=== PATIENT | male | born 1970 | race Caucasian/White ===

== ENCOUNTER 2023-02-14 03:51 | Emergency (ER) | payer OTHER ==
--- NOTE | 2023-02-14 05:10 | ED ---
Chest Pain HPI - General Stated Complaint: Chest Pain Time Seen by Provider: 02/14/23 04:32 - History of Present Illness Initial Comments: This patient is 52-year-old man who had developed chest pain earlier in the evening. The patient stated that the pain did resolve. MD Complaint: chest pain -: hour(s) Onset: during rest Pain Location: substernal Pain Radiation: none Quality: dull Consistency: intermittent, now resolved Improves With: nothing Treatments Prior to Arrival: aspirin, nitroglycerin - Related Data Allergies Allergy/AdvReac Type Severity Reaction Status Date / Time No Known Allergies Allergy Verified 02/14/23 05:58 Review of Systems ROS Statement: Those systems with pertinent positive or pertinent negative responses have been documented in the HPI. ROS Other: All systems not noted in ROS Statement are negative. Constitutional: Denies: fever, chills Respiratory: Denies: cough, dyspnea Cardiovascular: Reports: chest pain. Denies: palpitations, edema Gastrointestinal: Denies: abdominal pain, nausea, vomiting Genitourinary: Denies: dysuria Musculoskeletal: Denies: back pain Skin: Denies: rash Neurological: Denies: headache, weakness, numbness EKG Findings - EKG Results: EKG: interpreted by ERMD, sinus rhythm (Rate 63 bpm), normal axis, normal QRS, normal ST/T General Exam General appearance: alert, in no apparent distress Head exam: Present: atraumatic, normocephalic Eye exam: Present: normal appearance. Absent: scleral icterus, conjunctival injection ENT exam: Present: normal oropharynx Neck exam: Present: normal inspection Respiratory exam: Present: normal lung sounds bilaterally. Absent: respiratory distress, wheezes, rales, rhonchi, stridor Cardiovascular Exam: Present: regular rate, normal rhythm, normal heart sounds. Absent: systolic murmur, diastolic murmur, rubs, gallop GI/Abdominal exam: Present: soft. Absent: distended, tenderness, guarding, rebound, rigid, mass Extremities exam: Present: normal inspection, normal capillary refill. Absent: pedal edema, calf tenderness Back exam: Present: normal inspection. Absent: CVA tenderness (R) Neurological exam: Present: alert Skin exam: Present: warm, dry, intact, normal color. Absent: rash Course Vital Signs 02/14/23 02/14/23 02/14/23 04:08 05:00 06:00 Temperature Pulse Rate 63 72 74 Respiratory 16 18 18 Rate Blood Pressure 114/68 111/69 110/72 O2 Sat by Pulse 95 Oximetry 02/14/23 07:06 Temperature 98.8 F Pulse Rate 60 Respiratory 18 Rate Blood Pressure 125/80 O2 Sat by Pulse 97 Oximetry Chest Pain MDM - MDM The patient had chest x-ray which I interpreted as negative for acute infiltrate, pneumothorax, congestive heart failure Was pt. sent in by a medical professional or institution (, [facility], WASHROOM CLEANER, urgent care, hospital, or usp...) When possible be specific @ -[No] Did you speak to anyone other than the patient for history (EMS, parent, family, police, friend...)? What history was obtained from this source @ -[No] Did you review nursing and triage notes (agree or disagree)? Why? @ -[I reviewed and agree with nursing and triage notes] Were old charts reviewed (outside hosp., previous admission, EMS record, old EKG, old radiological studies, urgent care reports/EKG's, usp records)? Report findings @ -[No old charts were reviewed] Differential Diagnosis (chest pain, altered mental status, abdominal pain women, abdominal pain men, vaginal bleeding, weakness, fever, dyspnea, syncope, headache, dizziness, GI bleed, back pain, seizure, CVA, palpatations, mental health, musculoskeletal)? @ -[Differential Chest Pain: Stable Angina, Unstable Angina, STEMI, NSTEMI Aortic Dissection, Pneumothorax, Musculoskeletal, Esophageal Spasm GERD, Cholecystitis, Pancreatitis, Zoster, this is not meant to be an all-inclusive list. EKG interpreted by me (3pts min.). @ -[I interpreted As above] X-rays interpreted by me (1pt min.). @ -[I interpreted as above CT interpreted by me (1pt min.). @ -[None done] U/S interpreted by me (1pt. min.). @ -[None done] What testing was considered but not performed or refused? (CT, X-rays, U/S, labs)? Why? @ -[None] What meds were considered but not given or refused? Why? @ -[None] Did you discuss the management of the patient with other professionals (professionals i.e. , PA, WASHROOM CLEANER, lab, RT, psych nurse, social professionals, literacy specialist, teacher, plain clothes police officer, case reviewer)? Give summary @ -[No] Was smoking cessation discussed for >3mins.? @ -[No] Was critical care preformed (if so, how long)? @ -[No] Were there social determinants of health that impacted care today? How? (Homelessness, low income, unemployed, alcoholism, drug addiction, transportation, low edu. Level, literacy, decrease access to med. care, penitentiary, rehab)? @ -[No] Was there de-escalation of care discussed even if they declined (Discuss DNR or withdrawal of care, Hospice)? DNR status @ -[No] What co-morbidities impacted this encounter? (DM, HTN, Smoking, COPD, CAD, Cancer, CVA, ARF, Chemo, Hep., AIDS, mental health diagnosis, sleep apnea, morbid obesity)? @ -[None] Was patient admitted / discharged? Hospital course, mention meds given and route, prescriptions, significant lab abnormalities, going to OR and other pertinent info. @ -[The patient is 52-year-old man who did have episode of chest pain, but pain-free in the department. His workup is negative. He did request discharge back to [place]. We discussed appropriate further care and follow-up as well as return parameters Undiagnosed new problem with uncertain prognosis? @ -[No] Drug Therapy requiring intensive monitoring for toxicity (Heparin, Nitro, Insulin, Cardizem)? @ -[No] Were any procedures done? @ -[No] Diagnosis/symptom? @ -[Acute chest pain, resolved Acute, or Chronic, or Acute on Chronic? @ -[Acute Uncomplicated (without systemic symptoms) or Complicated (systemic symptoms)? @ -[Uncomplicated Side effects of treatment? @ -[No] Exacerbation, Progression, or Severe Exacerbation? @ -[No] Poses a threat to life or bodily function? How? (Chest pain, [place], [place], pneumonia, PE, COPD, DKA, ARF, appy, cholecystitis, CVA, Diverticulitis, Homicidal, Suicidal, threat to staff... and all critical care pts) @ -[No] Disposition Clinical Impression: Chest pain Disposition: HOME SELF-CARE Condition: Good Instructions (If sedation given, give patient instructions): Chest Pain (ED) Is patient prescribed a controlled substance at d/c from ED?: No Referrals: None,Stated [Primary Care Provider] - 1-2 days
[2023-02-14] MEDS ORDERED: MORPHINE SULFATE 4 MG/ML SYRINGE IV STA (05:37)
[2023-02-14] MEDS ORDERED: NICOTINE GUM (POLACRILEX) 2 MG GUM BUCCAL STA (05:39)
[2023-02-14 06:05] VITALS: RESP 18
--- NOTE | 2023-02-14 06:35 | XR ---
EXAMINATION TYPE: XR chest 2V DATE OF EXAM: 02/14/2023 COMPARISON: NONE HISTORY: Chest pain TECHNIQUE: Frontal and lateral views of the chest are obtained. FINDINGS: There is a 2-lead cardiac pacemaker. The heart size normal. The pulmonary vasculature appears slightly congested. There is no pleural effu oma or pneumothorax. There is no consolidative/airspace opacity. The osseous structures are intact IMPRESSION: 1. Cardiac pacemaker. 2. Slight vascular congestion without overt CHF
[2023-02-14 07:05] LABS: Basophils % (A) 0 %; Eosinophils # (A) 0.2 k/uL (0-0.7); Eosinophils % (A) 2 %; HCT 38.6 % (39.0-53.0); HGB 12.6 gm/dL (13.0-17.5); Lymphocytes # (A) 3.4 k/uL (1.0-4.8); Lymphocytes % (A) 44 %; MCHC 32.6 g/dL (31.0-37.0); MCV 92.1 fL (80.0-100.0); Mean Platelet Volume 7.7; Monocytes # (A) 0.4 k/uL (0-1.0); Monocytes % (A) 6 %; Neutrophils # (A) 3.5 k/uL (1.3-7.7); Neutrophils % (A) 46 %; Platelet Count 141 k/uL (150-450); RBC 4.19 m/uL (4.30-5.90); RDW 14.4 % (11.5-15.5); WBC 7.6 k/uL (3.8-10.6)
[2023-02-14 07:10] VITALS: BP 125/80; PULSE 60; TEMP 98.8
[2023-02-14 07:16] LABS: INR 0.9 (<1.2); Prothrombin Time 10.1 sec (9.0-12.0)
[2023-02-14 07:22] LABS: ALT 26 U/L (4-49); AST 20 U/L (17-59); African American GFR (CKD) >90 (>60 ml/min/1.73 sqM); Alkaline Phosphatase 44 U/L (38-126); Anion Gap 3 mmol/L; Blood Urea Nitrogen 13 mg/dL (9-20); Calcium 8.7 mg/dL (8.4-10.2); Carbon Dioxide 27 mmol/L (22-30); Chloride 109 mmol/L (98-107); Glucose 101 mg/dL (74-99); Magnesium 2.2 mg/dL (1.6-2.3); Non-African American GFR(CKD) >90 (>60 ml/min/1.73 sqM); Sodium 139 mmol/L (137-145); Total Bilirubin 0.1 mg/dL (0.2-1.3); Total Protein 5.1 g/dL (6.3-8.2)
== END 2023-02-14 08:00 | disposition home or self-care (01) ==
LOC: EC 03:51
DX: R07.2 Precordial pain (principal)
CPT/HCPCS: 36415; 93005; 80053; 83735; 84484; 85025; 85610; 85730; 71046; 99285; 96374; J2270

== ENCOUNTER 2023-03-29 13:45 | Emergency (ER) | payer OTHER ==
[2023-03-29 14:09] VITALS: RESP 18
--- NOTE | 2023-03-29 14:38 | ED ---
General Adult HPI - General Chief complaint: Skin/Abscess/Foreign Body Stated complaint: cyst on tail bone Time Seen by Provider: 03/29/23 14:15 Source: patient, RN notes reviewed Mode of arrival: ambulatory Limitations: no limitations - History of Present Illness Initial comments: 52-year-old male presents emergency Department chief complaint of abscess on his tailbone. Patient states that this is been a recurrent issue. He states about 3-4 weeks ago he was admitted at [facility] secondary to bacteremia. Patient states she is on multiple antibiotics. No surgical intervention. Patient states he was told to follow-up for treatment of that. Patient denies fever currently denies night sweats he states there is drainage from the site. Josiah ramirez is currently at [place] - Related Data Previous Rx's Medication Instructions Recorded Cephalexin [Keflex] 500 mg PO Q6HR #40 cap 03/29/23 Sulfamethox-Tmp 800-160Mg [Bactrim 1 each PO Q12HR #20 tab 03/29/23 Ds] Allergies Allergy/AdvReac Type Severity Reaction Status Date / Time Iodinated Contrast Media AdvReac Nausea & Verified 03/29/23 14:01 Vomiting Review of Systems ROS Statement: Those systems with pertinent positive or pertinent negative responses have been documented in the HPI. ROS Other: All systems not noted in ROS Statement are negative. Past Medical History Past Medical History: No Reported History History of Any Multi-Drug Resistant Organisms: None Reported Past Surgical History: No Surgical Hx Reported Past Psychological History: No Psychological Hx Reported Smoking Status: Current every day smoker Past Alcohol Use History: None Reported Past Drug Use History: IV Drug Use General Exam Limitations: no limitations General appearance: alert, in no apparent distress Head exam: Present: atraumatic, normocephalic, normal inspection Eye exam: Present: normal appearance, PERRL, EOMI. Absent: scleral icterus, conjunctival injection, periorbital swelling Respiratory exam: Present: normal lung sounds bilaterally. Absent: respiratory distress, wheezes, rales, rhonchi, stridor Cardiovascular Exam: Present: regular rate, normal rhythm, normal heart sounds. Absent: systolic murmur, diastolic murmur, rubs, gallop, clicks Skin exam: Present: other (At the cleft of the buttocks there is an open 1 cm abscess) Course Vital Signs 03/29/23 13:58 Temperature 98.5 F Pulse Rate 89 Respiratory 18 Rate Blood Pressure 124/77 O2 Sat by Pulse 98 Oximetry Medical Decision Making - Medical Decision Making Was pt. sent in by a medical professional or institution ([facility] Mello, REGISTER CLERK, urgent care, hospital, or custodial...) When possible be specific @ -[place] Did you speak to anyone other than the patient for history (EMS, parent, family, police, friend...)? What history was obtained from this source @ -No Did you review nursing and triage notes (agree or disagree)? Why? @ -I reviewed and agree with nursing and triage notes Were old charts reviewed (outside hosp., previous admission, EMS record, old EKG, old radiological studies, urgent care reports/EKG's, custodial records)? Report findings @ -No old charts were reviewed Differential Diagnosis (chest pain, altered mental status, abdominal pain women, abdominal pain men, vaginal bleeding, weakness, fever, dyspnea, syncope, headache, dizziness, GI bleed, back pain, seizure, CVA, palpatations, mental health, musculoskeletal)? @ -pilonodal cysts, abscess EKG interpreted by me (3pts min.). @ -None X-rays interpreted by me (1pt min.). @ -None done CT interpreted by me (1pt min.). @ -None done U/S interpreted by me (1pt. min.). @ -None done What testing was considered but not performed or refused? (CT, X-rays, U/S, labs)? Why? @ -None What meds were considered but not given or refused? Why? @ -None Did you discuss the management of the patient with other professionals (professionals i.e. AFIA Mello, REGISTER CLERK, lab, RT, psych nurse, social media campaign manager, tree scout, teacher, artillery officer, correctional case records supervisor)? Give summary @ -No Was smoking cessation discussed for >3mins.? @ -No Was critical care preformed (if so, how long)? @ -No Were there social determinants of health that impacted care today? How? (Homelessness, low income, unemployed, alcoholism, drug addiction, transportation, low edu. Level, literacy, decrease access to med. care, half-way, rehab)? @ -No Was there de-escalation of care discussed even if they declined (Discuss DNR or withdrawal of care, Hospice)? DNR status @ -No What co-morbidities impacted this encounter? (DM, HTN, Smoking, COPD, CAD, Cancer, CVA, ARF, Chemo, Hep., AIDS, mental health diagnosis, sleep apnea, morbid obesity)? @ -None Was patient admitted / discharged? Hospital course, mention meds given and route, prescriptions, significant lab abnormalities, going to OR and other pertinent info. @ -Patient left AGAINST MEDICAL ADVICE stating that he wanted to leave patient does have a draining cyst abscess that may require further intervention was give n antibiotics even though patient was leaving AGAINST MEDICAL ADVICE Undiagnosed new problem with uncertain prognosis? @ -No Drug Therapy requiring intensive monitoring for toxicity (Heparin, Nitro, Insulin, Cardizem)? @ -No Were any procedures done? @ -No Diagnosis/symptom? @ -Pilonodal abscess Acute, or Chronic, or Acute on Chronic? @ -[acute Uncomplicated (without systemic symptoms) or Complicated (systemic symptoms)? @ -uncomplicated Side effects of treatment? @ -No Exacerbation, Progression, or Severe Exacerbation? @ -No Poses a threat to life or bodily function? How? (Chest pain, [place], [place], pneumonia, PE, COPD, DKA, ARF, appy, cholecystitis, CVA, Diverticulitis, Homicidal, Suicidal, threat to staff... and all critical care pts) @ -No - Lab Data Result diagrams: 03/29/23 15:17 03/29/23 15:17 Lab Results 03/29/23 03/29/23 03/29/23 Range/Units 15:17 15:17 15:17 WBC 4.9 (3.8-10.6) k/uL RBC 4.34 (4.30-5.90) m/uL Hgb 13.2 (13.0-17.5) gm/dL Hct 38.7 L (39.0-53.0) % MCV 89.1 (80.0-100.0) fL MCH 30.4 (25.0-35.0) pg MCHC 34.1 (31.0-37.0) g/dL RDW 14.4 (11.5-15.5) % Plt Count 209 (150-450) k/uL MPV 7.5 Neutrophils % 44 % Lymphocytes % 41 % Monocytes % 7 % Eosinophils % 3 % Basophils % 1 % Neutrophils # 2.2 (1.3-7.7) k/uL Lymphocytes # 2.0 (1.0-4.8) k/uL Monocytes # 0.4 (0-1.0) k/uL Eosinophils # 0.2 (0-0.7) k/uL Basophils # 0.0 (0-0.2) k/uL Sodium 138 (137-145) mmol/L Potassium 4.4 (3.5-5.1) mmol/L Chloride 106 (98-107) mmol/L Carbon Dioxide 21 L (22-30) mmol/L Anion Gap 11 mmol/L BUN 14 (9-20) mg/dL Creatinine 0.72 (0.66-1.25) mg/dL Est GFR (CKD-EPI)AfAm >90 (>60 ml/min/1.73 sqM) Est GFR (CKD-EPI)NonAf >90 (>60 ml/min/1.73 sqM) Glucose 97 (74-99) mg/dL Plasma Lactic Acid Pal 1.0 (0.7-2.0) mmol/L Calcium 9.6 (8.4-10.2) mg/dL Disposition Clinical Impression: Pilonidal abscess of sadaf cleft Disposition: LEFT AGAINST MEDICAL ADVICE Instructions (If sedation given, give patient instructions): Abscess (ED) Prescriptions: Sulfamethox-Tmp 800-160Mg [Bactrim Ds] 1 each PO Q12HR #20 tab Cephalexin [Keflex] 500 mg PO Q6HR #40 cap Is patient prescribed a controlled substance at d/c from ED?: No Referrals: Nonstaff,Physician [Primary Care Provider] - 1-2 days Time of Disposition: 16:05
[2023-03-29 15:38] LABS: Basophils % (A) 1 %; Eosinophils # (A) 0.2 k/uL (0-0.7); Eosinophils % (A) 3 %; HCT 38.7 % (39.0-53.0); HGB 13.2 gm/dL (13.0-17.5); Lymphocytes % (A) 41 %; MCH 30.4 pg (25.0-35.0); MCHC 34.1 g/dL (31.0-37.0); MCV 89.1 fL (80.0-100.0); Mean Platelet Volume 7.5; Monocytes # (A) 0.4 k/uL (0-1.0); Monocytes % (A) 7 %; Neutrophils # (A) 2.2 k/uL (1.3-7.7); Neutrophils % (A) 44 %; Platelet Count 209 k/uL (150-450); RBC 4.34 m/uL (4.30-5.90); RDW 14.4 % (11.5-15.5); WBC 4.9 k/uL (3.8-10.6)
[2023-03-29 15:45] LABS: African American GFR (CKD) >90 (>60 ml/min/1.73 sqM); Anion Gap 11 mmol/L; Blood Urea Nitrogen 14 mg/dL (9-20); Calcium 9.6 mg/dL (8.4-10.2); Carbon Dioxide 21 mmol/L (22-30); Chloride 106 mmol/L (98-107); Glucose 97 mg/dL (74-99); Non-African American GFR(CKD) >90 (>60 ml/min/1.73 sqM); Potassium 4.4 mmol/L (3.5-5.1); Sodium 138 mmol/L (137-145)
[2023-03-29] MEDS ORDERED: KETOROLAC 15 MG/ML 1 ML VIAL IM STA (16:24)
[2023-03-29 16:46] VITALS: BP 111/71; PULSE 71; TEMP 98.2
== END 2023-03-29 16:48 | disposition left against medical advice (07) ==
LOC: EC 13:45
DX: L05.01 Pilonidal cyst with abscess (principal); Z53.29 Procedure and treatment not carried out because of patient's decision for other reasons; F17.200 Nicotine dependence, unspecified, uncomplicated; F15.90 Other stimulant use, unspecified, uncomplicated; Z91.041 Radiographic dye allergy status
CPT/HCPCS: 36415; 80048; 83605; 85025; 87040; 99283

== ENCOUNTER 2023-06-10 03:27 | Inpatient (IN) | payer OTHER ==
[2023-06-10] MEDS ORDERED: MORPHINE SULFATE 4 MG/ML SYRINGE IV STA (03:37)
[2023-06-10 03:56] LABS: ALT 24 U/L (4-49); AST 24 U/L (17-59); African American GFR (CKD) >90 (>60 ml/min/1.73 sqM); Albumin 3.9 g/dL (3.5-5.0); Alkaline Phosphatase 66 U/L (38-126); Anion Gap 6 mmol/L; Blood Urea Nitrogen 12 mg/dL (9-20); Calcium 9.4 mg/dL (8.4-10.2); Carbon Dioxide 23 mmol/L (22-30); Chloride 110 mmol/L (98-107); Glucose 141 mg/dL (74-99); Lipase 99 U/L (23-300); Magnesium 2.2 mg/dL (1.6-2.3); Non-African American GFR(CKD) >90 (>60 ml/min/1.73 sqM); Potassium 4.1 mmol/L (3.5-5.1); Sodium 139 mmol/L (137-145); Total Bilirubin 0.4 mg/dL (0.2-1.3); Total Protein 6.5 g/dL (6.3-8.2)
[2023-06-10 03:58] LABS: Basophils % (A) 1 %; Eosinophils # (A) 0.2 k/uL (0-0.7); Eosinophils % (A) 3 %; HCT 36.3 % (39.0-53.0); HGB 11.8 gm/dL (13.0-17.5); Lymphocytes # (A) 2.2 k/uL (1.0-4.8); Lymphocytes % (A) 28 %; MCH 28.9 pg (25.0-35.0); MCHC 32.5 g/dL (31.0-37.0); MCV 88.9 fL (80.0-100.0); Monocytes # (A) 0.7 k/uL (0-1.0); Monocytes % (A) 8 %; Neutrophils # (A) 4.5 k/uL (1.3-7.7); Neutrophils % (A) 57 %; Platelet Count 225 k/uL (150-450); RBC 4.09 m/uL (4.30-5.90); RDW 14.5 % (11.5-15.5); WBC 7.8 k/uL (3.8-10.6)
[2023-06-10 04:04] LABS: NT-Pro-B-Type Natriuretic Pept <20 pg/mL
--- NOTE | 2023-06-10 04:15 | ED ---
Chest Pain HPI - General Chief Complaint: Chest Pain Stated Complaint: Chest pain Time Seen by Provider: 06/10/23 03:30 Source: patient, EMS Mode of arrival: EMS Limitations: no limitations - History of Present Illness Initial Comments: 52-year-old male presents the emergency department from [place]. Comes in complaining of chest pain. States he has a history of previous HI without stent placement. States that the pain started around 130. Located in the central portion of his chest and radiates straight through to his back. No associated shortness of breath. EMS did provide the patient with 4 chewable aspirins and a nitro which she states did not help his pain. He does have a history of alcohol, opiate and cocaine abuse. No other alleviating, precipitating modifying factors - Related Data Home Medications Medication Instructions Recorded Confirmed Acetaminophen [Tylenol] 650 mg PO Q4H PRN 06/10/23 06/10/23 Brexpiprazole [Rexulti] 3 mg PO DAILY 06/10/23 06/10/23 Buprenorphine HCl/Naloxone HCl 1 film SL HS 06/10/23 06/10/23 [Suboxone 8 mg-2 mg Sl Film] Buprenorphine HCl/Naloxone HCl 2 film SL DAILY 06/10/23 06/10/23 [Suboxone 8 mg-2 mg Sl Film] Fluticasone Nasal [place] [Flonase 1 spray EA NOSTRIL DAILY 06/10/23 06/10/23 Nasal [place]] Gabapentin 300 mg PO TID 06/10/23 06/10/23 Loratadine [Claritin] 10 mg PO DAILY 06/10/23 06/10/23 Omeprazole 20 mg PO DAILY 06/10/23 06/10/23 lisinopriL [Zestril] 10 mg PO DAILY 06/10/23 06/10/23 metFORMIN HCL [Glucophage] 500 mg PO BID 06/10/23 06/10/23 Previous Rx's Medication Instructions Recorded Aspirin 81 mg PO DAILY 30 Days #30 tab 06/11/23 Atorvastatin [Lipitor] 80 mg PO HS 30 Days #30 tab 06/11/23 DULoxetine HCL [Cymbalta] 60 mg PO DAILY 30 Days #30 cap 06/11/23 Metoprolol Succinate (ER) [Toprol 25 mg PO DAILY 30 Days #30 tab 06/11/23 XL] Allergies Allergy/AdvReac Type Severity Reaction Status Date / Time Iodinated Contrast Media AdvReac Nausea & Verified 06/10/23 07:20 Vomiting Review of Systems ROS Statement: Those systems with pertinent positive or pertinent negative responses have been documented in the HPI. ROS Other: All systems not noted in ROS Statement are negative. Past Medical History Past Medical History: No Reported History History of Any Multi-Drug Resistant Organisms: None Reported Past Surgical History: No Surgical Hx Reported Past Psychological History: No Psychological Hx Reported Smoking Status: Current every day smoker Past Alcohol Use History: None Reported Past Drug Use History: IV Drug Use - Past Family History Mother History Unknown: Yes Family Medical History: Cancer Additional Family Medical History / Comment(s): Lung Cancer Father Family Medical History: Cancer Daughter(s) Family Medical History: Renal Disease Additional Family Medical History / Comment(s): "Kidneys drained too quickly" General Exam Limitations: no limitations General appearance: alert, in distress Head exam: Present: atraumatic, normocephalic, normal inspection Eye exam: Present: normal appearance, PERRL, EOMI. Absent: scleral icterus, conjunctival injection, periorbital swelling ENT exam: Present: normal exam, mucous membranes moist Neck exam: Present: normal inspection. Absent: tenderness, meningismus, lymphadenopathy Respiratory exam: Present: normal lung sounds bilaterally. Absent: respiratory distress, wheezes, rales, rhonchi, stridor Cardiovascular Exam: Present: regular rate, normal rhythm, normal heart sounds. Absent: systolic murmur, diastolic murmur, rubs, gallop, clicks GI/Abdominal exam: Present: soft, normal bowel sounds. Absent: distended, tenderness, guarding, rebound, rigid Extremities exam: Present: normal inspection, full ROM, normal capillary refill. Absent: tenderness, pedal edema, joint swelling, calf tenderness Back exam: Present: normal inspection Neurological exam: Present: alert, oriented X3, CN II-XII intact Psychiatric exam: Present: normal affect, normal mood Skin exam: Present: warm, dry, intact, normal color. Absent: rash Course Vital Signs 06/10/23 06/10/23 06/10/23 03:28 04:30 04:44 Temperature 98.3 F Pulse Rate 61 74 70 Respiratory 18 16 18 Rate Blood Pressure 106/77 105/56 122/78 O2 Sat by Pulse 96 98 98 Oximetry 06/10/23 04:51 Temperature Pulse Rate 65 Respiratory 16 Rate Blood Pressure 94/44 O2 Sat by Pulse 97 Oximetry Chest Pain MDM - MDM Was pt. sent in by a medical professional or institution ([facility]IA Mello, BAG MENDER, urgent care, hospital, or usp...) When possible be specific @ -No Did you speak to anyone other than the patient for history (EMS, parent, family, police, friend...)? What history was obtained from this source @ -No Did you review nursing and triage notes (agree or disagree)? Why? @ -I reviewed and agree with nursing and triage notes Were old charts reviewed (outside hosp., previous admission, EMS record, old EKG, old radiological studies, urgent care reports/EKG's, usp records)? Report findings @ -No old charts were reviewed Differential Diagnosis (chest pain, altered mental status, abdominal pain women, abdominal pain men, vaginal bleeding, weakness, fever, dyspnea, syncope, headache, dizziness, GI bleed, back pain, seizure, CVA, palpatations, mental health, musculoskeletal)? @ -Not applicable EKG interpreted by me (3pts min.). @ -First done at 341 demonstrates sinus rhythm with a rate of 69. Parable 186. QRS 104. QTc of 431. Repeat done at 4:11 AM demonstrates sinus rhythm with a rate of 65. MD of 149. QRS 100. QTc 427. Patient does appear to have hyperacute T waves in 2, 3, aVF with no reciprocal changes X-rays interpreted by me (1pt min.). @ -None done CT interpreted by me (1pt min.). @ -None done U/S interpreted by me (1pt. min.). @ -None done What testing was considered but not performed or refused? (CT, X-rays, U/S, labs)? Why? @ -None What meds were considered but not given or refused? Why? @ -None Did you discuss the management of the patient with other professionals (professionals i.e. AFIA Mello, BAG MENDER, lab, RT, psych nurse, forensic social worker, white sugar supervisor, teacher, plant protection officer, rn field case manager)? Give summary @ -No Was smoking cessation discussed for >3mins.? @ -No Was critical care preformed (if so, how long)? @ -[address] discussion [address] Dr[address] garcia, diagnosis of unstable angina and transfer of patient to labor relations director Were there social determinants of health that impacted care today? How? (Homelessness, low income, unemployed, alcoholism, drug addiction, transport ation, low edu. Level, literacy, decrease access to med. care, detention, rehab)? @ -No Was there de-escalation of care discussed even if they declined (Discuss DNR or withdrawal of care, Hospice)? DNR status @ -No What co-morbidities impacted this encounter? (DM, HTN, Smoking, COPD, CAD, Cancer, CVA, ARF, Chemo, Hep., AIDS, mental health diagnosis, sleep apnea, morbid obesity)? @ -None Was patient admitted / discharged? Hospital course, mention meds given and route, prescriptions, significant lab abnormalities, going to OR and other pertinent info. @ -Upon arrival patient was placed into room 1. Thorough history and physical exam was performed. Twelve-lead EKG is obtained. Patient does have some hyperacute T waves. IV is established. laboratory studies are conducted. I did repeat an EKG which continues to demonstrate concerning findings, however more pronounced. Because of this I did speak with Dr. Marcum who is on-call for cardiology. Due to patient's active chest pain he will be taken to Fast Food Assistant Restaurant Manager at this time. He was given a dose of morphine for symptom control and is awaiting transfer to the labor relations director Undiagnosed new problem with uncertain prognosis? @ -yes Drug Therapy requiring intensive monitoring for toxicity (Heparin, Nitro, Insulin, Cardizem)? @ -No Were any procedures done? @ -No Diagnosis/symptom? @ -acute chest pain, unstable angina Acute, or Chronic, or Acute on Chronic? @ -acute Uncomplicated (without systemic symptoms) or Complicated (systemic symptoms)? @ -complicated Side effects of treatment? @ -No Exacerbation, Progression, or Severe Exacerbation? @ -No Poses a threat to life or bodily function? How? (Chest pain, [place], [place], pneumonia, PE, COPD, DKA, ARF, appy, cholecystitis, CVA, Diverticulitis, Homicidal, Suicidal, threat to staff... and all critical care pts) @ -yes patient presents with significant chest pain Disposition Clinical Impression: Chest pain Disposition: ADMITTED IP TO THIS HOSP Condition: Stable Is patient prescribed a controlled substance at d/c from ED?: No Time of Disposition: 04:29 Decision to Admit Reason: Admit from EC Decision Date: 06/10/23 Decision Time: :29
[2023-06-10] MEDS ORDERED: HEPARIN SOD,PORK IN 0.45% NACL 25,000 UNIT in 0.45% NACL 1 250ML.BAG IV SCH (04:30)
[2023-06-10] MEDS ORDERED: HEPARIN SODIUM 1,000 UN/ML (10ML VL) IV PRN (04:30)
[2023-06-10] MEDS ORDERED: HEPARIN SODIUM 1,000 UN/ML (10ML VL) IV ONE (04:30)
[2023-06-10] MEDS ORDERED: NALOXONE 0.4 MG/ML 1 ML VIAL IV PRN (04:31)
--- NOTE | 2023-06-10 04:31 | XR ---
EXAM: XR Chest, 2 Views CLINICAL HISTORY: ITS.REASON XR Reason: Chest Pain TECHNIQUE: Frontal and lateral views of the chest. COMPARISON: 2 views of the chest February 14, 2023 IMPRESSION: 1. Mild dependent atelectatic changes. Otherwise, no acute cardiopulmonary abnormality.
[2023-06-10] MEDS ORDERED: ATORVASTATIN 40 MG TAB PO STA (04:35)
[2023-06-10] MEDS: MORPHINE SULFATE 4 MG/ML SYRINGE IV PRN ×3 (04:40→19:54)
[2023-06-10] MEDS ORDERED: diphenhydrAMINE 50 MG/ML 1 ML VIAL ONE (05:08)
[2023-06-10] MEDS ORDERED: methylPREDNISolone SOD SUCCI 125 MG/2 ML VIAL ONE (05:09)
[2023-06-10] MEDS ORDERED: LIDOCAINE 1% INJ 10MG/ML (20 ML MDV) SQ ONE (05:15)
--- NOTE | 2023-06-10 05:15 | P.HPIM ---
History of Present Illness H&P Date: 06/10/23 Chief Complaint: chest pain 52 year old male with hypertension , alcohol abuse and dependance patient coming in for sudden onset chest pain, he was at [facility] for alcoho l withdrawal , his last drink was 6 days ago. he reports that shakes and anxiety has almost resolved , denies any hallucinations, but does report some crawling sensation over his legs. he was sleeping and woke up with severe left sided chest pain , associated with nausea , diaphoresis , SOB, palpitations and heavy breathing, he reports history of CAD with left heart cath done in the past, and his doctors almost deployed a stent. EMS was notified , and was given full dose aspirin, and brought to the hospital for evaluation he also reports afib, s/p PPM, but is not on any blood thinners due to none compliance he reports history of DM and hypertension , however nothing listed in his med list. he admits to to bacco smoking, and heavy alcohol review of systems Pertinent positives as noted in HPI. All other systems were reviewed and are negative on exam Constitutional: No acute distress, conversant, pleasant Eyes: Anicteric sclerae, moist conjunctiva, Pupils equal round reactive to light ENMT: NC/AT Oropharynx clear, no erythema, or exudates Neck: Supple, no masses, or JVD No carotid bruits No thyromegaly Lungs: Clear to auscultation Clear to percussion Normal respiratory effort, no accessory muscle use Cardiovascular: Heart regular in rate and rhythm, No murmurs, gallops, or rubs No peripheral edema Abdominal: Soft Nontender, no guarding, rebound or rigidity Abdomen moving with respiration Normoactive bowel sounds Extremities: No digital cyanosis No clubbing Pedal pulses intact and symmetrical Radial pulses intact and symmetrical No calf tenderness Psychiatric: Alert and oriented to person, place and time Appropriate affect fair judgement Neuro Muscles Strength 5/5 in all 4 extremities Sensation to light touch grossly present throughout Cranial nerves II-XII grossly intact Lymphatics: no palpable cervical or supraclavicular lymph nodes Past Medical History Past Medical History: No Reported History History of Any Multi-Drug Resistant Organisms: None Reported Past Surgical History: No Surgical Hx Reported Past Psychological History: No Psychological Hx Reported Smoking Status: Current every day smoker Past Alcohol Use History: None Reported Past Drug Use History: IV Drug Use Medications and Allergies Home Medications Medication Instructions Recorded Confirmed Type Cephalexin [Keflex] 500 mg PO Q6HR #40 cap 03/29/23 Rx Sulfamethox-Tmp 800-160Mg [Bactrim 1 each PO Q12HR #20 tab 03/29/23 Rx Ds] Allergies Allergy/AdvReac Type Severity Reaction Status Date / Time Iodinated Contrast Media AdvReac Nausea & Verified 06/10/23 03:33 Vomiting Physical Exam Vitals: Vital Signs Temp Pulse Resp BP Pulse Ox 06/10/23 04:51 65 16 94/44 97 06/10/23 04:44 70 18 122/78 98 06/10/23 04:30 74 16 105/56 98 06/10/23 03:28 98.3 F 61 18 106/77 96 Intake and Output 06/09/23 06/09/23 06/10/23 14:59 22:59 06:59 Other: Weight 127.006 kg Results CBC & Chem 7: 06/10/23 03:38 06/10/23 03:38 Labs: Abnormal Lab Results - Last 24 Hours (Table) 06/10/23 06/10/23 Range/Units 03:38 03:38 RBC 4.09 L (4.30-5.90) m/uL Hgb 11.8 L (13.0-17.5) gm/dL Hct 36.3 L (39.0-53.0) % Chloride 110 H (98-107) mmol/L Glucose 141 H (74-99) mg/dL Assessment and Plan Assessment: 52 year old male with alcohol dependance was at [facility] for alcohol withdrawal. 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 with anticipated length of stay < 2 midnights atypical chest pain EKG suspicious for subtle T wave changes over inferior leads LII, III, aVf trops negative ASA nitro PRN for pain cardiology consult , recommended taking patient to blood bank laboratory technician heparin gtt morphine 2 mg IVP PRN alcohol dependance and abuse last drink 6 days ago monitor for residual withdrawal symptoms patient reports non compliance with medications he reports history of afib s/p PPM not on blood thinner due to non compliance with medications DM insulin sliding scale full code DVT PPX on heparin ip for ACS blood work showed hgb 7.8, Hgb 11.8 Na 139, K 4.1, BUN 12, cr 0.81 trops negative CXR no acute findings
[2023-06-10] MEDS ORDERED: fentaNYL (PF) 50 MCG/ML 2 ML AMP ONE (05:18)
[2023-06-10] MEDS ORDERED: DEXTROSE 50% SYRINGE 50 ML IVP PRN ×2 (05:19)
[2023-06-10] MEDS ORDERED: diphenhydrAMINE 50 MG/ML 1 ML VIAL IVP ONE (05:21)
[2023-06-10] MEDS ORDERED: HYDROCORTISONE SUCCINATE 100 MG/2 ML VIAL IVP ONE (05:21)
[2023-06-10] MEDS ORDERED: MIDAZOLAM 2 MG/2 ML VIAL IVP ONE (05:22)
[2023-06-10] MEDS: fentaNYL (PF) 50 MCG/ML 2 ML AMP IVP ONE ×2 (05:22→05:44)
[2023-06-10] MEDS ORDERED: VERAPAMIL SYRINGE (5 MG/10 ML) INTRAARTER ONE (05:22)
[2023-06-10] MEDS ORDERED: IOPAMIDOL-370 100ML BTL INJ ONE (05:30)
[2023-06-10] MEDS: MIDAZOLAM 2 MG/2 ML VIAL IVP ONE ×2 (05:38→05:45)
[2023-06-10] MEDS ORDERED: HEPARIN SODIUM 1,000 UN/ML (10ML VL) IVP ONE (05:38)
[2023-06-10] MEDS ORDERED: SODIUM CHLORIDE 0.9% 1,000 ML IV ONE (05:39)
--- NOTE | 2023-06-10 05:48 | P.CRDCN ---
History of Present Illness Consult date: 06/10/23 Chief complaint: Chest painChest pain History of present illness: The patient is a 52-year-old gentleman with a past medical history significant for history of smoking and alcohol use and drug use as well. Currently he is at rehab facility. He was brought to the hospital with a chest discomfort. The patient somewhat is a poor historian. He describes discomfort in the middle of the chest as a dull/pressure on the chest with no radiation to the arms or neck or shoulders or back. The pain started within the last 24 hours. No associated symptoms of shortness of breath or sweating or dizziness or lightheadedness or any feeling of heart racing or fluttering or any presyncope or syncope. He was brought to the emergency department for further evaluation where chest x-ray showed no acute abnormalities. The first set of troponin came in to be unremarkable. The EKG showed sinus mechanism with mild ST changes concerning for ischemia and seems to be somewhat worse compared to prior EKG. Because he continues to have ongoing chest discomfort and because an EKG changes and because he was informed in the past that he does have coronary artery disease based on heart catheterization, the decision was made toward taking the patient to the cardiac laborer laboratory. He underwent a heart catheterization from right radial approach and that revealed intermediate lesion involving the mid left anterior descending artery and the lesion was a tubular lesion we did a Doppler wire measurement and that came in to be borderline. With that being seated we decided to treat the patient medically. The patient tolerated the procedure very well. He will be admitted to the hospital. He will be on antiplatelet and high intensity statin and anti-ischemic medication. An echocardiogram will be performed. The examination is remarkable for regular rhythm with distant heart sounds and clear breathing sounds bilaterally and no lower extremities edema noted. Assessment Chest discomfort Coronary artery disease as described above History of smoking History of alcohol use History of drug use Plan Please refer to diagnosed sick heart catheterization was performed earlier Rule out any other etiology for the chest discomfort Obtain an echocardiogram was Doppler Antiplatelet and statin and anti-ischemic medications Further recommendation to follow depends on the progression of the case Past Medical History Past Medical History: No Reported History History of Any Multi-Drug Resistant Organisms: None Reported Past Surgical History: No Surgical Hx Reported Past Psychological History: No Psychological Hx Reported Smoking Status: Current every day smoker Past Alcohol Use History: None Reported Past Drug Use History: IV Drug Use Medications and Allergies Home Medications Medication Instructions Recorded Confirmed Type Cephalexin [Keflex] 500 mg PO Q6HR #40 cap 03/29/23 Rx Sulfamethox-Tmp 800-160Mg [Bactrim 1 each PO Q12HR #20 tab 03/29/23 Rx Ds] Allergies Allergy/AdvReac Type Severity Reaction Status Date / Time Iodinated Contrast Media AdvReac Nausea & Verified 06/10/23 03:33 Vomiting Physical Exam Vitals: Vital Signs Temp Pulse Resp BP Pulse Ox 06/10/23 04:51 65 16 94/44 97 06/10/23 04:44 70 18 122/78 98 06/10/23 04:30 74 16 105/56 98 06/10/23 03:28 98.3 F 61 18 106/77 96 Intake and Output 06/09/23 06/09/23 06/10/23 14:59 22:59 06:59 Intake Total 800 Balance 800 Intake: IV 800 Other: Weight 127.006 kg Results 06/10/23 03:38 06/10/23 03:38 Cardiac Enzymes 06/10/23 06/10/23 Range/Units 03:38 03:38 AST 24 (17-59) U/L Troponin I <0.012 (0.000-0.034) ng/mL CBC 06/10/23 Range/Units 03:38 WBC 7.8 (3.8-10.6) k/uL RBC 4.09 L (4.30-5.90) m/uL Hgb 11.8 L (13.0-17.5) gm/dL Hct 36.3 L (39.0-53.0) % Plt Count 225 (150-450) k/uL Comprehensive Metabolic Panel 06/10/23 Range/Units 03:38 Sodium 139 (137-145) mmol/L Potassium 4.1 (3.5-5.1) mmol/L Chloride 110 H (98-107) mmol/L Carbon Dioxide 23 (22-30) mmol/L BUN 12 (9-20) mg/dL Creatinine 0.81 (0.66-1.25) mg/dL Glucose 141 H (74-99) mg/dL Calcium 9.4 (8.4-10.2) mg/dL AST 24 (17-59) U/L ALT 24 (4-49) U/L Alkaline Phosphatase 66 (38-126) U/L Total Protein 6.5 (6.3-8.2) g/dL Albumin 3.9 (3.5-5.0) g/dL Current Medications Generic Name Dose Route Start Last Admin Trade Name Casperq PRN Reason Stop Dose Admin Dextrose/Water 25 ml 06/10/23 05:19 Dextrose 50% Syringe 50 Ml IVP PER PROTOCOL PRN Hypoglycemia Protocol Dextrose/Water 50 ml 06/10/23 05:19 Dextrose 50% Syringe 50 Ml IVP PER PROTOCOL PRN Hypoglycemia Protocol Heparin Sodium (Porcine) 0 unit 06/10/23 04:30 Heparin Sodium 1,000 Un/Ml (10ml Vl) IV PER PROTOCOL PRN Low PTT Protocol Heparin Sodium/Sodium Chloride 250 mls @ 10 mls/hr 06/10/23 04:30 06/10/23 04:36 25,000 unit/ Sodium Chloride IV 7.8736 units/kg/hr .Q24H CESAR 10 mls/hr Administration Protocol 7.8736 UNITS/KG/HR Insulin Aspart 0 unit 06/10/23 07:30 Insulin Aspart (Novolog) 100 Unit/Ml Vial SQ ACHS CESAR Protocol Morphine Sulfate 4 mg 06/10/23 04:31 06/10/23 04:40 Morphine Sulfate 4 Mg/Ml Syringe IV 4 mg Q3HR PRN Administration Severe Pain (Scale 7 to 10) Naloxone HCl 0.2 mg 06/10/23 04:31 Naloxone 0.4 Mg/Ml 1 Ml Vial IV Q2M PRN Opioid Reversal Intake and Output 06/09/23 06/09/23 06/10/23 14:59 22:59 06:59 Intake Total 800 Balance 800 Intake: IV 800 Other: Weight 127.006 kg Patient Weight 06/10/23 06:59 Weight 127.006 kg 06/10/23 03:38 06/10/23 03:38
[2023-06-10] MEDS ORDERED: RX INFO: IV CONTRAST WAS GIVEN 1 EACH MISC MISCELLANE PRN (05:51)
--- NOTE | 2023-06-10 05:51 | P.PCN ---
Date of Procedure: 06/10/23 Operative Findings: CARDIAC CATHETERIZATION PERFORMING PHYSICIAN: Robert Conteh MD, RPVI PROCEDURE PERFORMED: 1. Selective right and left coronary angiogram 2. Left heart catheterization INDICATION: Chest discomfort concerning for angina COMPLICATION: None APPROACH: Right radial artery LEVEL OF SEDATION: Moderate with a sedation length of 25 minutes PROCEDURE DESCRIPTION: After obtaining an informed consent, the patient was brought to cardiac cath lab radiological technologist. Local anesthesia was performed using lidocaine subcutaneously. The right radial artery was cannulated using Seldinger technique, the guidewire passed easily, following that we advanced a 5-[place]er sheath dilator assembly, the wire and dilator were removed and sheath was flushed. Following that, 2 mg of verapamil along with 5000 unit heparin were given. Selective right and left coronary angiogram using a 6-[place]er JR4 and JL 3.5 catheters. Following that we did left heart catheterization using JL 3.5 catheter. The procedure was completed there was no complication. SELECTIVE CORONARY ANGIOGRAM: The right coronary artery: Large caliber vessel and a dominant vessel with mild disease only. Left main: Is angiographically normal. Bifurcates into an LCx and LAD The left circumflex: Large caliber vessel and nondominant dominant vessel. The LCx is angiographically normal. It gives rise into an OM branch which appeared to have mild disease only The left anterior descending artery: Large caliber vessel. The proximal LAD appears to be angiographically normal. The mid LAD by the bifurcation of the diagonal branch has a tubular lesion appeared to be in the range of 60%. We did a Doppler wire measurement and that came in to be nonflow limiting. The distal LAD appeared to be angiographically normal HEMODYNAMICS: The LVEDP was 13 mmHg. I'm not sure if the measurement was I curette IFR OF THE LAD After zeroing the Doppler wire and equalizing between the Doppler wire and guiding catheter which was JL 3.5 guiding catheter in the left main was engaged and the LAD was wired. We did iFR and that came in to be nonischemic and 0.90. The procedure was completed was no complication CONCLUSION: 1. Intermediate disease involving the mid LAD. iFR= 0.90 POSTPROCEDURE MANAGEMENT: Medical treatment
[2023-06-10] MEDS ORDERED: SODIUM CHLORIDE 0.9% 1,000 ML IV SCH (06:00)
[2023-06-10 06:01] LABS: Glucose,Whole Blood 137 mg/dL (70-110)
[2023-06-10] MEDS: INSULIN ASPART (NovoLOG) 100 UNIT/ML VIAL SQ SCH ×4 (06:33→20:36)
[2023-06-10 06:35] LABS: INR 0.9 (<1.2); Partial Thromboplastin Time 23.2 sec (22.0-30.0); Prothrombin Time 10.3 sec (10.0-12.5)
--- NOTE | 2023-06-10 07:55 | P.PN ---
Subjective Progress Note Date: 06/10/23 PROGRESS NOTE The patient is a 52-year-old male who presented with symptoms of chest discomfort, persistent and because of that underwent cardiac catheterization by Dr. Conteh and was found to have nonhemodynamically significant lesion in the LAD by IFR. He is feeling well this morning his pain resolved with morphine. He denies any dyspnea, dizziness or palpitations. He continues to be in sinus mechanism. Hemodynamically he is stable. He has a history of hypertension, diabetes and he is a smoker. He has a prior history of alcohol and drug use. Medications: Lipitor 80 mg daily, aspirin once a day, metoprolol succinate 12.5 mg daily PHYSICAL EXAMINATION: Blood pressure 130/80 heart rate 70 LUNGS: Clear to auscultation HEART: Regular rate and rhythm, S1, S2. No S3. No systolic murmur ABDOMEN: Soft, nontender, no organomegaly EXTREMETIES: No edema, TR band on right wrist LAB: Hemoglobin 11.8, BUN 12, creatinine 0.81 IMPRESSION: 1. Chest discomfort with no evidence of significant obstructive disease 2. History of hypertension 3. History of diabetes 4. Chronic tobacco use 5. Chronic alcohol use PLAN: 1. Obtain an echocardiogram with Doppler 2. Increase physical activity 3. Follow blood pressure 4. If stable probable discharge home tomorrow Objective - Vital Signs Vital signs: Vital Signs Temp 97.8 F 06/10/23 06:00 Pulse 71 06/10/23 06:00 Resp 14 06/10/23 06:00 BP 130/80 06/10/23 06:00 Pulse Ox 95 06/10/23 06:00 FiO2 Intake & Output 06/09/23 06/10/23 06/10/23 18:59 06:59 18:59 Intake Total 800 Balance 800 Weight 127.006 kg Intake: IV 800 Other: # Voids 1 - Labs CBC & Chem 7: 06/10/23 03:38 06/10/23 03:38 Labs: Abnormal Lab Results - Last 24 Hours (Table) 06/10/23 06/10/23 06/10/23 Range/Units 03:38 03:38 06:00 RBC 4.09 L (4.30-5.90) m/uL Hgb 11.8 L (13.0-17.5) gm/dL Hct 36.3 L (39.0-53.0) % Chloride 110 H (98-107) mmol/L Glucose 141 H (74-99) mg/dL POC Glucose (mg/dL) 137 H (70-110) mg/dL
[2023-06-10] MEDS: ASPIRIN 81 MG PO SCH (08:14)
[2023-06-10] MEDS: METOPROLOL SUCCINATE (ER) 25 MG TAB.ER.24H PO SCH (08:14)
[2023-06-10] MEDS ORDERED: METOPROLOL SUCCINATE (ER) 25 MG TAB.ER.24H PO SCH (09:00)
[2023-06-10] MEDS: NICOTINE GUM (POLACRILEX) 2 MG GUM BUCCAL PRN ×2 (09:59→22:10)
[2023-06-10] MEDS ORDERED: TEMAZEPAM 7.5 MG CAP PO SCH (11:15)
[2023-06-10] MEDS ORDERED: BUPRENORPHINE SUBLINGUAL SCH ×2 (11:15→21:00)
[2023-06-10] MEDS ORDERED: NALOXONE SUBLINGUAL SCH ×2 (11:15→21:00)
--- NOTE | 2023-06-10 11:30 | CA ---
Transthoracic Echo Report Name: Cornel Palmer Age: 52 Gender: M : 1970 Exam Date: 06/10/2023 09:54 Exam Location: [place] [facility] Ht (in): Wt (lb): Ordering Physician: Yordy Viera DO Attending/Referring Phys: Anil Keenan DO [facility] Polygraph Operator Brian Abbasi RDCS Procedure CPT: Indications: CP Cardiac Hx: Technical Quality: Technically difficult study Contrast 1: Definity Total Dose (mL): 2 Contrast 2: Total Dose (mL): MEASUREMENTS (Male / Female) Normal Values 2D ECHO LV Diastolic Diameter PLAX 4.7 cm 4.2 - 5.9 / 3.9 - 5.3 cm LV Systolic Diameter PLAX 3.3 cm IVS Diastolic Thickness 1.4 cm 0.6 - 1.0 / 0.6 - 0.9 cm LVPW Diastolic Thickness 1.4 cm 0.6 - 1.0 / 0.6 - 0.9 cm LV Relative Wall Thickness 0.6 RV Internal Dim ED PLAX 3.8 cm LVOT Diameter 2.4 cm Aortic Root Diameter 3.3 cm LA Systolic Diameter LX 3.6 cm 3.0 - 4.0 / 2.7 - 3.8 cm DOPPLER AV Peak Velocity 200.9 cm/s AV Peak Gradient 16.1 mmHg AV Mean Velocity 144.1 cm/s AV Mean Gradient 9.4 mmHg AV Velocity Time Integral 41.9 cm LVOT Peak Velocity 150.4 cm/s LVOT Peak Gradient 9.0 mmHg LVOT Velocity Time Integral 31.7 cm LVOT Stroke Volume 149.0 cm??? AV Area Cont Eq vti 3.6 cm??? AV Area Cont Eq pk 3.5 cm??? MV Peak Velocity 112.3 cm/s MV Peak Gradient 5.0 mmHg MV Mean Velocity 64.5 cm/s MV Mean Gradient 2.0 mmHg MV Velocity Time Integral 44.3 cm MR Peak Velocity 152.5 cm/s MR Peak Gradient 9.3 mmHg Mitral E Point Velocity 98.5 cm/s Mitral A Point Velocity 124.6 cm/s Mitral E to A Ratio 0.8 MV Deceleration Time 303.0 ms TR Peak Velocity 154.3 cm/s TR Peak Gradient 9.5 mmHg Right Ventricular Systolic Press 14.5 mmHg PV Peak Velocity 141.3 cm/s PV Peak Gradient 8.0 mmHg FINDINGS Left Ventricle Normal LV size. Mild concentric LVH. Left ventricular ejection fraction is estimated at 55-60 %. Right Ventricle Mild right ventricular dilatation. Catheter/pacemaker wire in the right ventricular cavity. Right Atrium Normal right atrial size. Left Atrium Normal left atrial size. Mitral Valve Structurally normal mitral valve. Mild MR. No mitral stenosis. Aortic Valve Trileaflet aortic valve. No aortic valve stenosis or regurgitation. Tricuspid Valve Tricuspid valve not well visualized. race TR,. Pulmonic Valve Pulmonic valve not well visualized. No pulmonic regurgitation. Pericardium Normal pericardium. Aorta Normal size aortic root. CONCLUSIONS Technically difficult and limited views study. Normal LV systolic function No pericardial effusion Previewed by: Dr. Robert Conteh MD (Electronically Signed) Final Date: 10 June 2023 11:29
[2023-06-10] MEDS: GABAPENTIN 300 MG CAP PO SCH ×3 (12:12→20:36)
[2023-06-10] MEDS: FLUTICASONE 50MCG/SPRAY NASAL 16GM EA NOSTRIL SCH (12:12)
[2023-06-10] MEDS: DULoxetine HCL 60 MG CAPSULE.DR PO SCH (12:12)
[2023-06-10] MEDS: LORATADINE 10 MG TAB PO SCH (12:12)
[2023-06-10] MEDS: BUPRENORPHINE-NALOX 8-2 MG TAB 1 EACH TAB.SUBL SL SCH (12:13)
[2023-06-10 12:19] LABS: Glucose,Whole Blood 395 mg/dL (70-110)
[2023-06-10 16:50] LABS: Glucose,Whole Blood 216 mg/dL (70-110)
[2023-06-10 20:29] LABS: Glucose,Whole Blood 220 mg/dL (70-110)
[2023-06-10] MEDS ORDERED: ATORVASTATIN 80 MG TAB PO SCH (21:00)
[2023-06-10] MEDS ORDERED: BUPRENORPHINE-NALOX 8-2 MG TAB 1 EACH TAB.SUBL SL SCH (21:00)
[2023-06-11] MEDS ORDERED: MAG HYDROX/AL HYDROX/SIMETH 30 ML CUP PO PRN (02:21)
[2023-06-11] MEDS: MORPHINE SULFATE 4 MG/ML SYRINGE IV PRN ×3 (05:24→11:56)
[2023-06-11 05:55] LABS: Glucose,Whole Blood 178 mg/dL (70-110)
[2023-06-11] MEDS: INSULIN ASPART (NovoLOG) 100 UNIT/ML VIAL SQ SCH ×2 (06:07→11:57)
[2023-06-11 07:43] LABS: Basophils % (A) 0 %; Eosinophils % (A) 0 %; HCT 37.9 % (39.0-53.0); HGB 12.2 gm/dL (13.0-17.5); Hypochromasia Slight; Lymphocytes # (A) 2.7 k/uL (1.0-4.8); Lymphocytes % (A) 24 %; MCH 29.1 pg (25.0-35.0); MCHC 32.2 g/dL (31.0-37.0); MCV 90.4 fL (80.0-100.0); Mean Platelet Volume 7.6; Monocytes # (A) 0.8 k/uL (0-1.0); Monocytes % (A) 8 %; Neutrophils # (A) 7.2 k/uL (1.3-7.7); Neutrophils % (A) 65 %; Platelet Count 280 k/uL (150-450); RDW 14.3 % (11.5-15.5)
[2023-06-11 08:01] LABS: INR 0.9 (<1.2); Prothrombin Time 10.5 sec (10.0-12.5)
[2023-06-11 08:14] LABS: African American GFR (CKD) >90 (>60 ml/min/1.73 sqM); Anion Gap 10 mmol/L; Blood Urea Nitrogen 17 mg/dL (9-20); Carbon Dioxide 22 mmol/L (22-30); Chloride 106 mmol/L (98-107); Glucose 131 mg/dL (74-99); Non-African American GFR(CKD) >90 (>60 ml/min/1.73 sqM); Sodium 138 mmol/L (137-145)
[2023-06-11 08:37] LABS: Potassium 4.5 mmol/L (3.5-5.1)
[2023-06-11] MEDS: FLUTICASONE 50MCG/SPRAY NASAL 16GM EA NOSTRIL SCH (08:52)
[2023-06-11] MEDS: ASPIRIN 81 MG PO SCH (08:52)
[2023-06-11] MEDS: METOPROLOL SUCCINATE (ER) 25 MG TAB.ER.24H PO SCH (08:52)
[2023-06-11] MEDS: BUPRENORPHINE-NALOX 8-2 MG TAB 1 EACH TAB.SUBL SL SCH (08:52)
[2023-06-11] MEDS: DULoxetine HCL 60 MG CAPSULE.DR PO SCH (08:52)
[2023-06-11] MEDS: GABAPENTIN 300 MG CAP PO SCH (08:52)
[2023-06-11] MEDS: LORATADINE 10 MG TAB PO SCH (08:52)
[2023-06-11] MEDS ORDERED: PANTOPRAZOLE 40 MG TABLET PO SCH (09:00)
[2023-06-11] MEDS ORDERED: lisinopriL 10 MG TAB PO SCH (09:45)
[2023-06-11 10:28] VITALS: RESP 16
--- NOTE | 2023-06-11 11:13 | P.DS ---
Providers Date of admission: 06/10/23 04:34 Attending physician: Coy Hussein MD Consults: 06/10/23 04:31 Consult Physician Urgent Consulting Provider: Robert Conteh Consult Reason/Comments: chest pain Do you want consulting provider notified?: Already Contacted Primary care physician: Stated None Hospital Course: Discharge Diagnosis: Atypical chest pain Alcohol dependence and abuse Anxiety and depression Diabetes mellitus Hospital Course: Patient is a 52-year-old male with a past medical history of hypertension, alcohol abuse and dependence who came in to the ED with chest pain from [facility] where he is being treated for alcohol withdrawal. Patient reports that his last drink was 6 days ago. Patient was seen by cardiology in the hospital and because he had persistent chest pain he underwent a cardiac catheterization which only showed 60% stenosis of the LAD. At the time of discharge patient's chest pain had resolved. He was cleared by cardiology for discharge. Patient was started on aspirin metoprolol and atorvastatin. He was instructed to follow-up with cardiology outpatient. Patient was not in withdrawal during this hospitalization. 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 Patient seen and examined at bedside on 06/11/2023.[] Vital signs reviewed and stable. General: [non toxic], [no distress], [appears at stated age] Derm: [warm], [dry] Head: [atraumatic], [normocephalic], [symmetric] Eyes: [EOMI], [no lid lag], [anicteric sclera] Mouth: [no lip lesion], [mucus membranes moist] Cardiovascular: [S1S2 reg], [no murmur], [positive posterior tibial pulse bilateral], Lungs: [CTA bilateral], [no rhonchi, no rales] , [no accessory muscle use] Abdominal: [soft], [ nontender to palpation], [no guarding], [no appreciable organomegaly] Ext: [no gross muscle atrophy], [no edema], [no contractures] Neuro: [ CN II-XI grossly intact], [no focal neuro deficits] Psych: [Alert], [oriented], [appropriate affect] A total of [33] minutes of time were spent preparing this complex discharge summary . Patient Condition at Discharge: Stable Plan - Discharge Summary Discharge Rx Participant: Yes New Discharge Prescriptions: New Aspirin 81 mg PO DAILY 30 Days #30 tab Metoprolol Succinate (ER) [Toprol XL] 25 mg PO DAILY 30 Days #30 tab Atorvastatin [Lipitor] 80 mg PO HS 30 Days #30 tab Continue metFORMIN HCL [Glucophage] 500 mg PO BID lisinopriL [Zestril] 10 mg PO DAILY Fluticasone Nasal Barco [Flonase Nasal Barco] 1 spray EA NOSTRIL DAILY Buprenorphine HCl/Naloxone HCl [Suboxone 8 mg-2 mg Sl Film] 2 film SL DAILY Buprenorphine HCl/Naloxone HCl [Suboxone 8 mg-2 mg Sl Film] 1 film SL HS Brexpiprazole [Rexulti] 3 mg PO DAILY DULoxetine HCL [Cymbalta] 60 mg PO DAILY 30 Days #30 cap Acetaminophen [Tylenol] 650 mg PO Q4H PRN PRN Reason: Fever And/ Or Pain Omeprazole 20 mg PO DAILY Loratadine [Claritin] 10 mg PO DAILY Gabapentin 300 mg PO TID Discontinued Sulfamethox-Tmp 800-160Mg [Bactrim DS 800-160 mg] 1 tab PO Q12HR Discharge Medication List Acetaminophen [Tylenol] 650 mg PO Q4H PRN 06/10/23 [History] Brexpiprazole [Rexulti] 3 mg PO DAILY 06/10/23 [History] Buprenorphine HCl/Naloxone HCl [Suboxone 8 mg-2 mg Sl Film] 1 film SL HS 06/10/23 [History] Buprenorphine HCl/Naloxone HCl [Suboxone 8 mg-2 mg Sl Film] 2 film SL DAILY 06/10/23 [History] Fluticasone Nasal Barco [Flonase Nasal Barco] 1 spray EA NOSTRIL DAILY 06/10/23 [History] Gabapentin 300 mg PO TID 06/10/23 [History] Loratadine [Claritin] 10 mg PO DAILY 06/10/23 [History] Omeprazole 20 mg PO DAILY 06/10/23 [History] lisinopriL [Zestril] 10 mg PO DAILY 06/10/23 [History] metFORMIN HCL [Glucophage] 500 mg PO BID 06/10/23 [History] Aspirin 81 mg PO DAILY 30 Days #30 tab 06/11/23 [Rx] Atorvastatin [Lipitor] 80 mg PO HS 30 Days #30 tab 06/11/23 [Rx] DULoxetine HCL [Cymbalta] 60 mg PO DAILY 30 Days #30 cap 06/11/23 [Rx] Metoprolol Succinate (ER) [Toprol XL] 25 mg PO DAILY 30 Days #30 tab 06/11/23 [Rx] Follow up Appointment(s)/Referral(s): Robert Conteh MD [STAFF PHYSICIAN] - 1 Week None,Stated [Primary Care Provider] - 1-2 days Discharge Disposition: HOME SELF-CARE
[2023-06-11 11:25] LABS: Glucose,Whole Blood 262 mg/dL (70-110)
--- NOTE | 2023-06-11 11:47 | P.PN ---
Subjective HISTORY OF PRESENT ILLNESS: The patient is a 52-year-old male who presented with symptoms of chest discomfort, persistent and because of that underwent cardiac catheterization by Dr. Conteh and was found to have nonhemodynamically significant lesion in the LAD by IFR. He is feeling well this morning his pain resolved with morphine. He denies any dyspnea, dizziness or palpitations. He continues to be in sinus mechanism. Hemodynamically he is stable. He has a history of hypertension, diabetes and he is a smoker. He has a prior history of alcohol and drug use. June 11, 2023 Patient examined this morning at the bedside. Patient currently denies chest pain or pressure. He denies shortness of breath. Vital signs are stable. Echocardiogram completed revealing ejection fraction 55 to 60%. Blood pressure is slightly on the higher side this morning. PHYSICAL EXAM: VITAL SIGNS: Reviewed. GENERAL: Well-developed in no acute distress. NECK: Supple. No JVD or thyromegaly LUNGS: Respirations even and unlabored. Lungs essentially clear to auscultation bilaterally. HEART: Regular rate and rhythm. S1 and S2 heard. EXTREMITIES: Normal range of motion. No clubbing or cyanosis. Peripheral pulses intact. No lower extremity edema ASSESSMENT: 1. Chest discomfort with no evidence of significant obstructive disease 2. History of hypertension 3. History of diabetes 4. Chronic tobacco use 5. Chronic alcohol use PLAN: Continue current cardiac medications Resume home dose of lisinopril Patient may be discharged home today from a cardiac standpoint He is to follow-up outpatient in the office. Nurse practitioner note has been reviewed by physician. Signing provider agrees with the documented findings, assessment, and plan of care documented by BARREL MARKER as a scribe. Objective - Vital Signs Vital signs: Vital Signs Temp 98.2 F 06/11/23 08:20 Pulse 71 06/11/23 08:20 Resp 16 06/11/23 08:20 BP 108/59 06/11/23 08:20 Pulse Ox 94 L 06/11/23 08:20 FiO2 Intake & Output 06/10/23 06/11/23 06/11/23 18:59 06:59 18:59 Intake Total 720 500 118 Balance 720 500 118 Weight 127.006 kg Intake: Intake, IV Titration 600 Amount Sodium Chloride 0.9% 1, 600 000 ml @ 75 mls/hr IV . [id number] [facility] Rx#:[id number] Oral 120 500 118 Other: Voiding Method Toilet Toilet # Voids 2 1 - Labs CBC & Chem 7: 06/11/23 07:13 06/11/23 07:13 Labs: Abnormal Lab Results - Last 24 Hours (Table) 06/10/23 06/10/23 06/10/23 Range/Units 12:17 16:49 20:23 WBC (3.8-10.6) k/uL RBC (4.30-5.90) m/uL Hgb (13.0-17.5) gm/dL Hct (39.0-53.0) % Glucose (74-99) mg/dL POC Glucose (mg/dL) 395 H 216 H 220 H (70-110) mg/dL Hemoglobin A1c (<=6.0) % 06/11/23 06/11/23 06/11/23 Range/Units 05:48 07:13 07:13 WBC (3.8-10.6) k/uL RBC (4.30-5.90) m/uL Hgb (13.0-17.5) gm/dL Hct (39.0-53.0) % Glucose 131 H (74-99) mg/dL POC Glucose (mg/dL) 178 H (70-110) mg/dL Hemoglobin A1c 6.6 H (<=6.0) % 06/11/23 06/11/23 Range/Units 07:13 11:24 WBC 11.0 H (3.8-10.6) k/uL RBC 4.20 L (4.30-5.90) m/uL Hgb 12.2 L (13.0-17.5) gm/dL Hct 37.9 L (39.0-53.0) % Glucose (74-99) mg/dL POC Glucose (mg/dL) 262 H (70-110) mg/dL Hemoglobin A1c (<=6.0) %
[2023-06-11 12:35] VITALS: BP 143/91; PULSE 81; TEMP 97.9
== END 2023-06-11 13:24 | disposition home or self-care (01) | DRG 191 ==
LOC: EC 03:27 → 2SICU 04:34 → 3SCARD 15:22
PROVIDERS: ADMIT Internal Medicine; ATTEND Internal Medicine
PROC: B2111ZZ Fluoroscopy of Multiple Coronary Arteries using Low Osmolar Contrast (ICD-10-PCS; principal; 2023-06-10 04:54)
PROC: 4A023N7 Measurement of Cardiac Sampling and Pressure, Left Heart, Percutaneous Approach (ICD-10-PCS; principal; 2023-06-10 04:54)
DX: I25.10 Atherosclerotic heart disease of native coronary artery without angina pectoris (principal); I25.84 Coronary atherosclerosis due to calcified coronary lesion; I10 Essential (primary) hypertension; F17.200 Nicotine dependence, unspecified, uncomplicated; F10.20 Alcohol dependence, uncomplicated; E11.9 Type 2 diabetes mellitus without complications; F32.A Depression, unspecified; F41.9 Anxiety disorder, unspecified; I25.2 Old myocardial infarction; I48.91 Unspecified atrial fibrillation; Z95.0 Presence of cardiac pacemaker; Z79.84 Long term (current) use of oral hypoglycemic drugs; Z91.148 Patient's other noncompliance with medication regimen for other reason; Z91.041 Radiographic dye allergy status
CPT/HCPCS: 36415; 71046; 80048; 80053; 83036; 83690; 83735; 83880; 84484; 85025; 85610; 85730; 93005; 93306; 93458; 93799; 96365; 96375; 96376; 99291